=== PATIENT | female | born 1995 | race Caucasian/White ===

== ENCOUNTER 2016-12-02 14:46 | Emergency (ER) | payer OTHER ==
[2016-12-02 15:14] VITALS: TEMP 98.2; BMI 23.0
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
[2016-12-02 15:51] LABS: URINE APPEARANCE CLOUDY; URINE BILIRUBIN NEGATIVE (NEGATIVE); URINE BLOOD NEGATIVE (NEGATIVE); URINE COLOR YELLOW; URINE GLUCOSE (UA) NEGATIVE (NEGATIVE); URINE KETONE 1+ (NEGATIVE); URINE NITRITE NEGATIVE (NEGATIVE); URINE UROBILINOGEN 4.0 E.U/dl E.U./dl (0.2-1.0)
[2016-12-02 15:52] LABS: URINE LEUK ESTERASE TRACE (NEGATIVE); URINE PROTEIN 1+ (NEGATIVE)
[2016-12-02 15:55] LABS: BASOPHIL 0.4 % (0-2.0); MCH 29.4 pg (25.7-33.7); MCHC 33.3 g/dl (32.0-36.0); MEAN CELL VOLUME 88.3 fl (80-96); MEAN PLT VOLUME 9.6 fl (7.5-11.1); PLATELET COUNT 218 K/MM3 (134-434); RDW 13.9 % (11.6-15.6); WHITE BLOOD COUNT 7.8 K/mm3 (4.0-10.0)
[2016-12-02 15:57] LABS: URINE BACTERIA RARE /hpf (NONE SEEN); URINE MUCUS RARE; URINE RBC 17 /hpf (0-3); URINE WBC 5 /hpf (3-5); YEAST MANY
[2016-12-02 15:58] LABS: URINE MARIJUANA THC NEGATIVE ng/ml (CUTOFF=50)
[2016-12-02 16:21] LABS: ALBUMIN 4.5 g/dl (3.4-5.0); ANION GAP 9 (8-16); BILIRUBIN,TOTAL 0.6 mg/dL (0.2-1.0); CALCIUM 9.2 mg/dL (8.5-10.1); CO2 28 mmol/L (21-32); CREATININE 0.8 mg/dL (0.55-1.02); GLUCOSE,RANDOM 93 mg/dL (74-106); SGOT/AST 12 U/L (15-37); SGPT/ALT 15 U/L (12-78); TOT PROT 7.7 g/dl (6.4-8.2)
[2016-12-02 16:22] LABS: ALK PHOS 56 U/L (45-117)
--- NOTE | 2016-12-02 18:45 | CON.PSY ---
Psychiatry Consult Chief Complaint: I want to go home and kill myself. Symptoms: reports: Depressed Mood, Suicidality, Self destructive thoughts, Inability to Control Temper - Previous Psychiatric Treatment Outpatient: More than 6 mos ago Inpatient: One prior admission - Previous Substance Abuse Treatment Outpatient: None - Reason for Previous Treatment Reason for Previous Treatment: Major Depression, Suicidal Attempt/Behavior - Family History Family History: Unremarkable - Allergies Allergies: Allergies Allergy/AdvReac Type Severity Reaction Status Date / Time No Known Allergies Allergy Verified 12/02/16 15:14 - Current Living Status Usual Living Arrangement: With Parent - Current Mental Status Evaluation Appearance: Well Groomed Attitude: Belligerent - Affect Affect: Constrictive Appropriateness: Appropriate to Content - Mood Mood: Angry - Speech/Language Expressive: Coherent Receptive: Age Appropriate Comprehension of Spoken Words - Psychomotor Activity Psychomotor Activity: Agitated - Thought Process Thought Process: Intact - Thought Content Hallucinations: Absent Delusions: Absent - Self Perception Self Perception: No Impairment - Cognition Attention: Alert Orientation: Time Memory, Immediate Recall: Intact Memory, Remote: Intact - Concentration Serial Sevens Intact: No Simple Calculations Intact: No - Abstraction Proverb Interpretation: Intact Judgement: Moderately Impaired - Insight Insight: Impaired - Impulse Control Impulse Control: Moderately Impaired - Suicidal Ideation Suicidal Ideation: Yes (Want to cut myself.) - Homicidal Ideation Homicidal Ideation: No Assessment/Plan Admit to In Patient Psychiatry for Suicidal plans.
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
[2016-12-03 14:13] VITALS: BP 115/80; PULSE 61
--- NOTE | 2016-12-03 14:14 | EKG ---
Test Reason : Blood Pressure : / mmHG Vent. Rate : 067 BPM Atrial Rate : 067 BPM P-R Int : 140 ms QRS Dur : 094 ms QT Int : 406 ms P-R-T Axes : 037 072 035 degrees QTc Int : 429 ms NORMAL SINUS RHYTHM INCOMPLETE RIGHT BUNDLE BRANCH BLOCK T WAVE ABNORMALITY, CONSIDER ANTERIOR ISCHEMIA ABNORMAL ECG NO PREVIOUS ECGS AVAILABLE Confirmed by SHIREEN SMITH MD ([id number]) on 12/03/2016 2:13:55 PM Referred By: Confirmed By:SHIREEN SMITH MD
== END 2016-12-03 14:15 | disposition home or self-care (01) ==
LOC: JER 14:46
DX: R45.851 Suicidal ideations (principal); F32.9 Major depressive disorder, single episode, unspecified
CPT/HCPCS: 36415; 71010-TC; 80053; 80307; 81003; 81015; 84703; 85025; 93005; 93010; 99284-25

== ENCOUNTER 2019-10-25 18:09 | Emergency (ER) | payer OTHER ==
--- NOTE | 2019-10-25 18:15 | PDOC ---
Rapid Medical Evaluation Time Seen by Provider: 10/25/19 18:12 Medical Evaluation: Allergies Allergy/AdvReac Type Severity Reaction Status Date / Time No Known Allergies Allergy Verified 12/02/16 15:14 10/25/19 18:13 CC: lower abd cramping; LMP-09/20 + test at PE: deferred Orders: labs, urine, TVUS Patient will proceed to ED for further evaluation. Discharge Disposition - Diagnosis Abdominal pain affecting - Referrals - Patient Instructions - Post Discharge Activity
[2019-10-25 18:17] VITALS: BP 118/65; TEMP 98.1; BMI 25.7
[2019-10-25 18:26] VITALS: PULSE 84
[2019-10-25 18:56] LABS: BASO % 0.4 % (0-2.0); EOS % 1.3 % (0-4.5); HEMATOCRIT 39.5 % (32.4-45.2); HEMOGLOBIN 12.8 GM/dL (10.7-15.3); LYMPH % 37.7 % (8-40); MCH 29.3 pg (25.7-33.7); MCHC 32.5 g/dl (32.0-36.0); MEAN CELL VOLUME 90.1 fl (80-96); MEAN PLT VOLUME 9.7 fl (7.5-11.1); MONO % 5.5 % (3.8-10.2); NEUT % 55.1 % (42.8-82.8); PLATELET COUNT 221 K/MM3 (134-434); RBC 4.38 M/mm3 (3.60-5.2); RDW 13.2 % (11.6-15.6); WHITE BLOOD COUNT 7.6 K/mm3 (4.0-10.0)
[2019-10-25 19:02] LABS: EPI CELLS 2.8 /HPF (0-5/HPF); HYALINE CASTS 0 /lpf (0-8); URINE APPEARANCE CLEAR; URINE BACTERIA 42.8 /hpf (NEGATIVE); URINE BILIRUBIN NEGATIVE (NEGATIVE); URINE COLOR YELLOW; URINE GLUCOSE (UA) NEGATIVE (NEGATIVE); URINE KETONE TRACE (NEGATIVE); URINE LEUK ESTERASE TRACE (NEGATIVE); URINE NITRITE NEGATIVE (NEGATIVE); URINE PROTEIN NEGATIVE (NEGATIVE); URINE RBC 0 /hpf (0-4); URINE WBC 6 /hpf (0-5)
[2019-10-25 19:22] LABS: BLOOD UREA NITROGEN 5.4 mg/dL (7-18); CALCIUM 8.5 mg/dL (8.5-10.1); CREATININE 0.6 mg/dL (0.55-1.3); POTASSIUM 4.1 mmol/L (3.5-5.1)
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
--- NOTE | 2019-10-25 19:43 | PDOC ---
*Physical Exam - Vital Signs Last Vital Signs Temp Pulse Resp BP Pulse Ox 98.1 F 84 16 118/65 100 10/25/19 18:11 10/25/19 18:11 10/25/19 18:11 10/25/19 18:11 10/25/19 18:11 ED Treatment Course - LABORATORY CBC & Chemistry Diagram: 10/25/19 18:30 10/25/19 18:30 - ADDITIONAL ORDERS Additional order review: Laboratory Results 10/25/19 10/25/19 10/25/19 18:30 18:30 18:30 Sodium 137 Potassium 4.1 Chloride 106 Carbon Dioxide 25 Anion Gap 6 L BUN 5.4 L Creatinine 0.6 Est GFR (CKD-EPI)AfAm 146.83 Est GFR (CKD-EPI)NonAf 126.68 Random Glucose 79 Calcium 8.5 Urine Color Yellow Urine Appearance Clear Urine pH 7.0 Ur Specific [place] 1.009 L Urine Protein Negative Urine Glucose (UA) Negative Urine Ketones Trace H Urine Blood Negative Urine Nitrite Negative Urine Bilirubin Negative Urine Urobilinogen 1.0 Ur Leukocyte Esterase Trace Urine WBC (Auto) 6 Urine RBC (Auto) 0 Urine Casts (Auto) 0 U Epithel Cells (Auto) 2.8 Urine Bacteria (Auto) 42.8 Urine HCG, Qual Positive 10/25/19 18:30 RBC 4.38 MCV 90.1 MCHC 32.5 RDW 13.2 MPV 9.7 Neutrophils % 55.1 D Lymphocytes % 37.7 D Monocytes % 5.5 Eosinophils % 1.3 D Basophils % 0.4 Medical Decision Making - Medical Decision Making 10/25/19 19:43 Patient seen by the advanced practice provider under my supervision. Ancillary testing reviewed as necessary. I agree with plan as outlined by the advanced practice provider. Discharge - Discharge Information Problems reviewed: Yes Clinical Impression/Diagnosis: Abdominal pain affecting Disposition: ELOPED - Follow up/Referral Referrals: Alvin Kelley MD [Primary Care Provider] - - Patient Discharge Instructions - Post Discharge Activity
== END 2019-10-25 20:50 | disposition left against medical advice (07) ==
LOC: JER 18:09
DX: O26.891 Other specified pregnancy related conditions, first trimester (principal); O30.041 Twin pregnancy, dichorionic/diamniotic, first trimester; R10.2 Pelvic and perineal pain; R11.2 Nausea with vomiting, unspecified; Z3A.01 Less than 8 weeks gestation of pregnancy
CPT/HCPCS: 36415; 76817-TC; 80048; 81003; 84702; 84703; 85025; 86850; 86900; 86901; 87086; 99284-25

== ENCOUNTER 2023-07-04 05:05 | Emergency (ER) | payer OTHER ==
[2023-07-04 05:20] VITALS: BP 123/76; PULSE 92; RESP 18; TEMP 98.5; BMI 28.3
[2023-07-04] MEDS ORDERED: DEXAMETHASONE 4 MG TABLET (FP) ONE (05:38)
[2023-07-04] MEDS ORDERED: DEXAMETHASONE 4 MG TABLET (FP) PO ONE (05:45)
[2023-07-04] MEDS: ALBUTEROL SO4 2.5/IPRATROPIUM 0.5 INH SOL 3 ML VIAL.NEB. NEB SCH ×4 (05:47→06:20)
== END 2023-07-04 06:37 | disposition home or self-care (01) ==
LOC: JER 05:05
DX: R06.2 Wheezing (principal); R68.83 Chills (without fever); R05.9 Cough, unspecified; Z20.822 Contact with and (suspected) exposure to COVID-19
CPT/HCPCS: 0241U-QW; 71045-TC-FY; 99284-25

== ENCOUNTER 2023-07-06 03:25 | Emergency (ER) | payer OTHER ==
[2023-07-06 03:36] VITALS: BMI 29.2
[2023-07-06] MEDS ORDERED: FAMOTIDINE 20 MG TABLET PO ONE (03:52)
[2023-07-06] MEDS ORDERED: predniSONE 20 MG TABLET (UD) PO ONE (03:53)
[2023-07-06] MEDS ORDERED: FAMOTIDINE 20 MG TABLET ONE (04:01)
[2023-07-06] MEDS ORDERED: predniSONE 20 MG TABLET (UD) ONE (04:01)
[2023-07-06] MEDS: ALBUTEROL SO4 2.5/IPRATROPIUM 0.5 INH SOL 3 ML VIAL.NEB. NEB SCH ×3 (04:06→05:08)
[2023-07-06] MEDS ORDERED: ALBUTEROL SO4 2.5/IPRATROPIUM 0.5 INH SOL 3 ML VIAL.NEB. NEB ONE (04:18)
[2023-07-06 06:08] VITALS: BP 126/78; PULSE 92; RESP 18; TEMP 98.6
== END 2023-07-06 06:07 | disposition home or self-care (01) ==
LOC: JER 03:25
PROC: 3E0F7GC Introduction of Other Therapeutic Substance into Respiratory Tract, Via Natural or Artificial Opening (ICD-10-PCS; principal; 2023-07-06)
DX: R06.00 Dyspnea, unspecified (principal); R05.9 Cough, unspecified; K21.9 Gastro-esophageal reflux disease without esophagitis; R06.2 Wheezing
CPT/HCPCS: 71046-TC-FY; 84703; 93005; 93010; 99285-25

== ENCOUNTER 2023-07-21 05:25 | Emergency (ER) | payer OTHER ==
[2023-07-21 05:38] VITALS: BMI 28.7
[2023-07-21] MEDS ORDERED: PANTOPRAZOLE SODIUM 40 MG/100 ML BAG IVPB ONE (06:05)
[2023-07-21] MEDS ORDERED: PANTOPRAZOLE SODIUM 40 MG VIAL IVPUSH ONE (06:05)
[2023-07-21] MEDS ORDERED: PANTOPRAZOLE SODIUM 40 MG VIAL IVPB ONE (06:22)
[2023-07-21 06:29] LABS: EOS % 5.9 % (0-4.5); HEMATOCRIT 43.3 % (32.4-45.2); HEMOGLOBIN 14.2 GM/dL (10.7-15.3); LYMPH % 24.5 % (8-40); MCH 28.2 pg (25.7-33.7); MCHC 32.9 g/dl (32.0-36.0); MEAN CELL VOLUME 85.8 fl (80-96); MONO % 4.4 % (3.8-10.2); NEUT % 64.2 % (42.8-82.8); PLATELET COUNT 247 10^3/uL (134-434); RBC 5.05 M/mm3 (3.60-5.2); RDW 13.5 % (11.6-15.6); WHITE BLOOD COUNT 8.5 K/mm3 (4.0-10.0)
[2023-07-21 06:48] LABS: POTASSIUM 3.9 mmol/L (3.5-5.1)
[2023-07-21 06:50] LABS: ALBUMIN 3.9 g/dl (3.4-5.0); BLOOD UREA NITROGEN 7.2 mg/dL (7-18); CALCIUM 8.1 mg/dL (8.5-10.1)
[2023-07-21 06:53] LABS: CREATININE 0.6 mg/dL (0.55-1.3)
[2023-07-21 06:55] LABS: BILIRUBIN,TOTAL 0.7 mg/dL (0.2-1)
[2023-07-21 10:27] VITALS: BP 120/73; PULSE 76; RESP 20; TEMP 98.2
== END 2023-07-21 10:45 | disposition home or self-care (01) ==
LOC: JER 05:25
PROC: 3E033GC Introduction of Other Therapeutic Substance into Peripheral Vein, Percutaneous Approach (ICD-10-PCS; principal; 2023-07-21)
DX: R05.2 Subacute cough (principal); R07.89 Other chest pain; R06.02 Shortness of breath
CPT/HCPCS: 36415; 71275-TC; 80053; 84703; 85025; 96374; 99285-25; Q9967